=== PATIENT | female | born 1960 | race Caucasian/White ===

== ENCOUNTER 2017-09-05 06:56 | Day surgery (SDC) | payer OTHER ==
[~2017-09-05 06:56] MED LIST: ALLER-TEC10 MG PO; LIPITOR20 MG PO; METFORMIN HCL500 MG PO; TRICOR145 MG PO
[2017-09-05] MEDS ORDERED: MACROBID 100 M100 MG PO (11:46)
[2017-09-05] MEDS ORDERED: ULTRACET PO (11:47)
== END 2017-09-05 14:40 | disposition home or self-care (01) ==
LOC: CIR.AMB 06:56
DX: N39.3 Stress incontinence (female) (male) (principal)
CPT/HCPCS: 57288; C1771